=== PATIENT | male | born 1960 | race Caucasian/White ===

== ENCOUNTER 2016-06-12 01:10 | Emergency (ER) | payer SELFPAY | END 2016-06-12 01:28 | disposition home or self-care (01) | LOC: ER 01:10 | PROC: 0HDQXZZ Extraction of Finger Nail, External Approach (ICD-10-PCS; principal; 2016-06-12) | DX: L03.011 Cellulitis of right finger (principal); S60.131A Contusion of right middle finger with damage to nail, initial encounter; W23.0XXA Caught, crushed, jammed, or pinched between moving objects, initial encounter | CPT/HCPCS: 73140-RT; 99283; A9270-GY ==